=== PATIENT | female | born 1960 | race Caucasian/White ===

== ENCOUNTER → 2020-06-24 | Outpatient (CLI) | payer BC | LOC: MAMMO 09:47 | PROVIDERS: ATTEND Obstetrics & Gynecology | DX: Z12.31 Encounter for screening mammogram for malignant neoplasm of breast (principal) | CPT/HCPCS: 77067 ==

== ENCOUNTER → 2021-08-03 | Outpatient (CLI) | payer BC | LOC: MAMMO 10:13 | PROVIDERS: ATTEND Obstetrics & Gynecology | DX: Z12.31 Encounter for screening mammogram for malignant neoplasm of breast (principal); M85.88 Other specified disorders of bone density and structure, other site | CPT/HCPCS: 77067; 77080 ==